=== PATIENT | male | born 1960 | race African-American/Black ===

== ENCOUNTER 2017-01-09 12:47 | Emergency (ER) | payer MEDICARE ==
[~2017-01-09] VITALS: Ht 175.3 cm; Wt 109.1 kg
[~2017-01-09 12:47] MED LIST: NO HOME MEDICATIONS; ZESTRIL 10MG10 MG PO
[2017-01-09 12:52] VITALS: BP 128/88; TEMP 98.3
[2017-01-09 15:52] LABS: BASO # 0.1 (0.0-0.2); BASO % 0.5 % (0.0-2.0); EOS # 0.4 (0.0-0.7); EOS % 3.1 % (0-4.0); GRAN # 8.6 (1.4-6.5); GRAN % 65.9 % (42.2-75.2); HEMATOCRIT 43.1 % (42.0-52.0); HEMOGLOBIN 13.9 g/dl (13.5-18.0); LYMPH # 3.2 (1.2-3.4); LYMPH % 24.5 % (20.0-51.0); MEAN CELL VOLUME 71 fl (80.0-100.0); MEAN CORPUSCULAR HEMOGLOBIN 23 pg (27.0-31.0); MEAN CORPUSCULAR HGB CONC 32 g/dl (33.0-37.0); MEAN PLATELET VOLUME 10.7 fl (7.4-10.4); MONO # 0.7 (0.1-0.6); MONO % 5.6 % (1.7-9.3); PLATELET COUNT 346 K/mm3 (130-400); REDCELL DISTRIBUTION WIDTH-CV 17.6 % (11.5-14.5)
[2017-01-09] MEDS ORDERED: PERCOCET 325 MG1 TA2 PO (16:04)
[2017-01-09] MEDS ORDERED: ULTRAM 50MG TAB50 MG PO (16:04)
[2017-01-09 16:09] LABS: C-REACTIVE PROTEIN 1.2 mg/dL (0.0-0.9); CALCIUM 9.1 mg/dL (8.4-10.2); CREATININE, serum 0.92 mg/dL (0.66-1.25); POTASSIUM 3.6 mmol/L (3.4-5.0)
[2017-01-09 16:39] LABS: ERYTHROCYTE SEDIMENTATION RATE 6 mm/hr (0-30)
[2017-01-09 16:53] VITALS: PULSE 89
== END 2017-01-09 16:54 | disposition home or self-care (01) ==
LOC: COL.ER 12:47
PROVIDERS: Emergency Medicine
DX: M25.562 Pain in left knee (principal); M25.561 Pain in right knee; F17.210 Nicotine dependence, cigarettes, uncomplicated
CPT/HCPCS: J1170; J1885

== ENCOUNTER → 2018-08-25 | Emergency (ER) | payer MEDICARE ==
[~2018-08-25] VITALS: Ht 175.3 cm; Wt 104.5 kg
[~2018-08-25] MED LIST changes: +PERCOCET 325 MG1 TA2 PO; +ULTRAM 50MG TAB50 MG PO
[2018-08-25 17:39] VITALS: TEMP 97.7
[2018-08-25 19:28] VITALS: BP 126/74; PULSE 103
[2018-08-26 16:45] LABS: ARTERIAL BLD GAS O2 SATURATION 98.4 % (92-100); ARTERIAL BLD GAS TCO2 CT 29.1; ARTERIAL BLOOD GAS BASE EXCESS -0.2 (-2-2); ARTERIAL BLOOD GAS HCO3 27.4 meq/L (22-26); ARTERIAL BLOOD GAS PCO2 57.3 mmHg (35-45)
[2018-08-26 16:56] LABS: ARTERIAL BLD GAS O2 SATURATION 98.6 % (92-100); ARTERIAL BLD GAS TCO2 CT 29.1; ARTERIAL BLOOD GAS BASE EXCESS -0.2 (-2-2); ARTERIAL BLOOD GAS HCO3 27.4 meq/L (22-26)
[2018-08-26 16:57] LABS: ARTERIAL BLOOD GAS PO2 226.8 mmHg (80-100)
== END ==
LOC: COL.ER 17:31
PROVIDERS: Emergency Medicine
DX: T23.232A Burn of second degree of multiple left fingers (nail), not including thumb, initial encounter (principal); J70.5 Respiratory conditions due to smoke inhalation; X08.8XXA Exposure to other specified smoke, fire and flames, initial encounter